=== PATIENT | male | born 1965 | race Hispanic/Latino ===

== ENCOUNTER 2019-03-03 10:36 | Emergency (ER) | payer MEDICARE ==
[~2019-03-03] VITALS: Ht 175.3 cm; Wt 81.0 kg
[~2019-03-03 10:36] MED LIST: CETIRIZINE10 MG PO; CLONAZEPAM0.5 MG PO; INDOMETHACIN50 MG PO; LEVEMIR SC; NOVOLIN 70/30 SC; NOVOLOG100 IU/1 M SC; PAROXETINE20 MG PO; PERCOCET1 TA2 PO; RISPERIDONE2 MG PO; WELLBUTRIN XL PO
[2019-03-03 11:22] LABS: IMMATURE GRANULOCYTES 0.2 % (0.0-5.0); MEAN CORPUSCULAR HGB 29.1 pG CALC (26.0-32.0); NEUT# 3.49 thou/uL (1.82-7.42); RED BLOOD COUNT 5.02 mill/uL (4.70-6.10); RED CELL DISTRI WIDTH 13.7 % (11.5-15.5)
[2019-03-03 11:23] LABS: HEMATOCRIT 44.2 % (39.0-50.0); HEMOGLOBIN 14.6 g/dl (14.0-18.0)
[2019-03-03 11:28] LABS: ALKALINE PHOSPHATASE 113 u/l (38-126); BUN 13 mg/dL (9-20); BUN/CREATININE RATIO 13 (12-20 (CALC)); CHLORIDE 94 mmol/l (95-108); GFR > 60 ML/MIN (>=60 (CALC)); GFR FOR AFR.AMER. > 60 ML/MIN (>=60 (CALC)); LIPASE 15 u/l (23-300); POTASSIUM 4.1 mmol/l (3.5-5.1); SODIUM 134 mmol/l (137-146)
[2019-03-03 11:54] LABS: ALBUMIN 4.3 g/dL (3.2-5.0); ANION GAP 15 (6-22 (CALC)); BILIRUBIN, TOTAL 0.4 mg/dL (0.0-1.4); CARBON DIOXIDE 29 mmol/l (22-30); SGOT/AST 47 u/l (17-59); TOTAL PROTEIN 7.2 g/dL (6.3-8.2)
[2019-03-03 12:55] VITALS: BP 132/60
== END 2019-03-03 12:55 | disposition left against medical advice (07) ==
LOC: ED 10:36
PROVIDERS: Family Medicine
DX: R07.9 Chest pain, unspecified (principal); J40 Bronchitis, not specified as acute or chronic; E11.9 Type 2 diabetes mellitus without complications; I10 Essential (primary) hypertension; F17.210 Nicotine dependence, cigarettes, uncomplicated; Z91.19 Patient's noncompliance with other medical treatment and regimen; Z79.4 Long term (current) use of insulin

== ENCOUNTER 2021-07-15 12:46 | Emergency (ER) | payer MEDICARE, MEDICAID ==
[2021-07-15] VITALS (15 sets, daily range): BP systolic 114–142; BP diastolic 60–78
[~2021-07-15] VITALS: Ht 175.3 cm; Wt 91.0 kg
[2021-07-15 13:27] LABS: HEMATOCRIT 44.6 % (39.0-50.0); IMMATURE GRANULOCYTES 0.3 % (0.0-5.0); MEAN CELL VOLUME 92.3 fL CALC (80.0-100.0); MEAN CORPUSCULAR HGB 31.1 pG CALC (26.0-32.0); MEAN CORPUSCULAR HGB CONC 33.6 g/dL CAL (32.0-36.0); NEUT# 4.98 thou/uL (1.82-7.42); RED BLOOD COUNT 4.83 mill/uL (4.70-6.10); RED CELL DISTRI WIDTH 12.5 % (11.5-15.5)
[2021-07-15 13:44] LABS: ALBUMIN 4.3 g/dL (3.2-5.0); ALKALINE PHOSPHATASE 125 u/l (38-126); ANION GAP 14 (6-22 (CALC)); BILIRUBIN, TOTAL 0.4 mg/dL (0.0-1.4); BUN 15 mg/dL (9-20); BUN/CREATININE RATIO 16 (12-20 (CALC)); CARBON DIOXIDE 27 mmol/l (22-30); CHLORIDE 95 mmol/l (95-108); CREATININE 0.9 mg/dL (0.7-1.3); GFR > 60 ML/MIN (>=60 (CALC)); GFR FOR AFR.AMER. > 60 ML/MIN (>=60 (CALC)); LIPASE 35 u/l (23-300); POTASSIUM 4.2 mmol/l (3.5-5.1); SGOT/AST 25 u/l (17-59); SODIUM 131 mmol/l (137-146); TOTAL PROTEIN 7.1 g/dL (6.3-8.2)
[2021-07-15 13:45] LABS: ACT PARTIAL THROMBO TIME 24.3 SECONDS (20.0-32.5); INTERNATIONAL NORMALIZED RATIO 0.9 RATIO (0.7-1.3); PROTHROMBIN TIME 9.8 SECONDS (9.0-12.5)
[2021-07-15 16:21] LABS: ANION GAP 13 (6-22 (CALC)); BUN 14 mg/dL (9-20); BUN/CREATININE RATIO 15 (12-20 (CALC)); CARBON DIOXIDE 29 mmol/l (22-30); CHLORIDE 99 mmol/l (95-108); CREATININE 0.9 mg/dL (0.7-1.3); GFR > 60 ML/MIN (>=60 (CALC)); GFR FOR AFR.AMER. > 60 ML/MIN (>=60 (CALC)); POTASSIUM 4.2 mmol/l (3.5-5.1); SODIUM 136 mmol/l (137-146)
== END 2021-07-15 16:55 | disposition home or self-care (01) ==
LOC: ED 12:46
DX: R07.9 Chest pain, unspecified (principal); E11.65 Type 2 diabetes mellitus with hyperglycemia; I10 Essential (primary) hypertension; F20.9 Schizophrenia, unspecified; F17.200 Nicotine dependence, unspecified, uncomplicated; Z79.4 Long term (current) use of insulin; Z20.822 Contact with and (suspected) exposure to COVID-19
CPT/HCPCS: Q9967

== ENCOUNTER 2021-07-25 12:06 | Observation (INO) | payer MEDICARE, MEDICAID ==
[2021-07-25] VITALS (16 sets, daily range): BP systolic 107–153; BP diastolic 56–82
[~2021-07-25] VITALS: Ht 175.3 cm; Wt 92.0 kg
--- NOTE | 2021-07-25 12:31 | NUR ---
PT ESCORTED TO ROOM 8 FOR EVAL OF POSSIBLE HYPERGLYCEMIA AND DIZZINESS
[2021-07-25 12:41] LABS: HEMATOCRIT 48.9 % (39.0-50.0); HEMOGLOBIN 16.3 g/dl (14.0-18.0); IMMATURE GRANULOCYTES 0.1 % (0.0-5.0); MEAN CELL VOLUME 91.7 fL CALC (80.0-100.0); MEAN CORPUSCULAR HGB 30.6 pG CALC (26.0-32.0); MEAN CORPUSCULAR HGB CONC 33.3 g/dL CAL (32.0-36.0); NEUT# 3.93 thou/uL (1.82-7.42); RED BLOOD COUNT 5.33 mill/uL (4.70-6.10); RED CELL DISTRI WIDTH 12.7 % (11.5-15.5)
[2021-07-25 13:03] LABS: ALBUMIN 4.8 g/dL (3.2-5.0); ALKALINE PHOSPHATASE 117 u/l (38-126); ANION GAP 15 (6-22 (CALC)); BILIRUBIN, TOTAL 0.5 mg/dL (0.0-1.4); BUN 17 mg/dL (9-20); BUN/CREATININE RATIO 19 (12-20 (CALC)); CARBON DIOXIDE 28 mmol/l (22-30); CHLORIDE 99 mmol/l (95-108); CREATININE 0.9 mg/dL (0.7-1.3); GFR > 60 ML/MIN (>=60 (CALC)); GFR FOR AFR.AMER. > 60 ML/MIN (>=60 (CALC)); POTASSIUM 4.1 mmol/l (3.5-5.1); SGOT/AST 23 u/l (17-59); SODIUM 138 mmol/l (137-146); TOTAL PROTEIN 7.8 g/dL (6.3-8.2)
[2021-07-25] MEDS ORDERED: TRILEPTAL150 M1 PO (15:43)
[2021-07-25] MEDS ORDERED: GABAPENTIN300 M2 PO (15:43)
[2021-07-25] MEDS ORDERED: ALPRAZOLAM1 MG PO (15:43)
[2021-07-25] MEDS ORDERED: BENZTROPINE0.5 MG PO (15:43)
[2021-07-25] MEDS ORDERED: HYDROXYZ HCL25 MG PO (15:44)
[2021-07-25] MEDS ORDERED: RISPERDAL0.5 MG PO (15:44)
[2021-07-25] MEDS ORDERED: FLUOXETINE20 MG PO (15:44)
[2021-07-25] MEDS ORDERED: VENLAFAXINE HCL75 M1 PO ×2 (15:44→15:45)
[2021-07-25] MEDS ORDERED: TRESIBA FL200 UNIT/M SC (15:45)
[2021-07-25] MEDS ORDERED: JARDIANCE25 MG PO (15:45)
[2021-07-25] MEDS ORDERED: SIMVASTATIN10 MG PO (15:46)
[2021-07-25] MEDS ORDERED: LEVOTHYROXIN88 MC1 PO (15:46)
[2021-07-25] MEDS ORDERED: TRILEPTAL300 M1 PO (16:07)
[2021-07-25] MEDS ORDERED: NOVOLIN 70/30 SC ×2 (16:08)
--- NOTE | 2021-07-25 17:15 | NUR ---
REPORT CALLED TO RIKA RAMSEY AT THIS TIME
--- NOTE | 2021-07-25 17:23 | NUR ---
REPORT RECIEVED FROM GODWIN GONZALEZ
--- NOTE | 2021-07-25 17:34 | NUR ---
PT ARRIVED VIA WC WITH BRAULIO GONZALEZ. ORIENTATED PT TO ROOM AND CALL CADE LIGHT SYSTEM. 20 RAC SL FLUSHED WITH NO RESISTANCE AND ABLE TO GET BLOOD RETURN. STATES SLIGHT TIGHTNESS IN CHEST WHEN BREATHING IN. TELE MONITOR IN PLACE, CONTINOUS MONITORING PER ED. FALL/SAFTEY PRECAUTION IN PLACE. CALL LIGHT WITHIN REACH
--- NOTE | 2021-07-25 21:36 | NUR ---
RESTING IN BED VS DOCUMENTED. A/O X 4 RESPIRATIONS EVEN AND UNLABORED. BS ACTIVE BELLY DISTENDED BUT SOFT. NO BLE EDEMA NOTED. NO C/O CHEST PAIN AT THIS TIME. PIV WDL BED LOW AND LOCKED CALL CADE IN REACH SIDE RAILS UP BED ALARM ACTIVE SAFETY MEASURES IN PLACE PER POLICY
--- NOTE | 2021-07-26 00:52 | NUR ---
RESTING IN BED EYES CLOSED RESPIRATIONS EVEN AND UNLABORED. VS CHARTED NO C/O CHEST PAIN THIS SHIFT
[2021-07-26 01:52] VITALS: BP 97/57
--- NOTE | 2021-07-26 03:51 | NUR ---
NO ACUTE EVENTS OVERNIGHT NO C/O CHEST PAIN
[2021-07-26 04:36] VITALS: BP 126/75
[2021-07-26 06:04] LABS: HEMATOCRIT 49.9 % (39.0-50.0); HEMOGLOBIN 16.4 g/dl (14.0-18.0); MEAN CELL VOLUME 92.9 fL CALC (80.0-100.0); MEAN CORPUSCULAR HGB 30.5 pG CALC (26.0-32.0); MEAN CORPUSCULAR HGB CONC 32.9 g/dL CAL (32.0-36.0); RED BLOOD COUNT 5.37 mill/uL (4.70-6.10); RED CELL DISTRI WIDTH 12.8 % (11.5-15.5)
[2021-07-26 06:20] LABS: BUN 16 mg/dL (9-20); BUN/CREATININE RATIO 21 (12-20 (CALC)); CALCULATED LDLCHOLESTEROL 102 mg/dL (62-129 (CALC)); CARBON DIOXIDE 28 mmol/l (22-30); CHLORIDE 103 mmol/l (95-108); CHOLESTEROL HDL RATIO 5.3 (<4.4 (CALC)); CREATININE 0.8 mg/dL (0.7-1.3); GFR > 60 ML/MIN (>=60 (CALC)); GFR FOR AFR.AMER. > 60 ML/MIN (>=60 (CALC)); HDL CHOLESTEROL 40 mg/dL (>=40); SODIUM 138 mmol/l (137-146); TOTAL CHOLESTEROL 215 mg/dl (0-199); TOTAL TRIGLYCERIDES 364 mg/dl (30-149); VLDL CHOLESTROL 73 mg/dl (8-62 (CALC))
[2021-07-26 06:22] LABS: ANION GAP 11 (6-22 (CALC)); POTASSIUM 4.1 mmol/l (3.5-5.1)
[2021-07-26 07:44] VITALS: BP 107/70
--- NOTE | 2021-07-26 07:45 | NUR ---
PT RESTING ON SIDE UPON ENTERING ROOM. VITALS AND ASSESSMENT ALLOWED. STATES NO PAIN AT THIS TIME. TELE MONITOR IN PLACE, CONINOUS MONITORING PER ED. IV PATENT. FALL/SAFTEY PRECAUTION IN PLACE. CALL LIGHT WITHIN REACH
--- NOTE | 2021-07-26 08:38 | NUR ---
IV INTACT, FLUSHED WITH NO RESISATNCE. ASSESSMENT ALLOWED AT THIS TIME. TELE MONITOR IN PLACE. CONTINOUS MONITORING PER ED.
[2021-07-26 10:45] VITALS: BP 140/77
--- NOTE | 2021-07-26 12:05 | NUR ---
PT LAYING DOWN AWAITING DC ORDERS. STATES NO PAIN. READY TO GO HOME. IV PATENT. FALL/SAFTEY PRECAUTION IN PLACE. CALL LIGHT WITHIN REACH.
--- NOTE | 2021-07-26 13:30 | NUR ---
Discharge instructions given. Patient verbalizes understanding of same. Discharged in stable condition via Wheelchair to Home with staff. All belongings sent with pt.
--- NOTE | 2021-07-26 13:53 | NUR ---
Discharge instructions given. Patient verbalizes understanding of same. Discharged in stable condition via Wheelchair to Home with family [facility] STEPHENIE . All belongings sent with pt.
== END 2021-07-26 13:53 | disposition home or self-care (01) ==
LOC: ED 12:06 → ED-I 13:18 → ED 14:43 → MS2 14:44
PROVIDERS: Family Medicine; ADMIT Hospitalist; ATTEND Hospitalist
DX: R07.9 Chest pain, unspecified (principal); M54.2 Cervicalgia; R42 Dizziness and giddiness; E11.65 Type 2 diabetes mellitus with hyperglycemia; I10 Essential (primary) hypertension; F41.9 Anxiety disorder, unspecified; E03.9 Hypothyroidism, unspecified; F25.9 Schizoaffective disorder, unspecified; E78.00 Pure hypercholesterolemia, unspecified; F17.210 Nicotine dependence, cigarettes, uncomplicated; Z79.4 Long term (current) use of insulin; Z20.822 Contact with and (suspected) exposure to COVID-19
CPT/HCPCS: J1650

== ENCOUNTER 2023-10-11 17:46 | Emergency (ER) | payer MEDICARE ==
[~2023-10-11] VITALS: Ht 180.3 cm; Wt 92.1 kg
[~2023-10-11 17:46] MED LIST changes: +ALPRAZOLAM1 MG PO; +BENZTROPINE0.5 MG PO; +FLUOXETINE20 MG PO; +GABAPENTIN300 M2 PO; +HYDROXYZ HCL25 MG PO; +JARDIANCE25 MG PO; +LEVOTHYROXIN88 MC1 PO; +RISPERDAL0.5 MG PO; +SIMVASTATIN10 MG PO; +TRESIBA FL200 UNIT/M SC; +TRILEPTAL150 M1 PO; +TRILEPTAL300 M1 PO; +VENLAFAXINE HCL75 M1 PO
[2023-10-11 18:14] VITALS: BP 134/66
[2023-10-11 18:30] VITALS: BP 124/63
[2023-10-11 18:45] VITALS: BP 138/68
[2023-10-11] MEDS ORDERED: AMOXIL400 MG/5 M PO (18:56)
[2023-10-11 19:00] VITALS: BP 131/71
[2023-10-11] MEDS ORDERED: AMOXICILLIN 400 MG/5 ML BTL PO ONE (19:00)
[2023-10-11 19:20] VITALS: BP 131/71
[2023-10-11] MEDS ORDERED: TRILEPTAL150 MG PO (19:26)
[2023-10-11] MEDS ORDERED: PLAVIX75 MG PO (19:31)
[2023-10-11] MEDS ORDERED: TRESIBA FL100 UNIT/M SC (19:34)
[2023-10-11] MEDS ORDERED: NOVOLIN R100 UNIT/1 SC (19:36)
[2023-10-11] MEDS ORDERED: TOPROL XL25 M1 PO (19:37)
[2023-10-11] MEDS ORDERED: BAYER ASPIRIN E81 MG PO (19:37)
[2023-10-11] MEDS ORDERED: CRESTOR20 MG PO (19:38)
[2023-10-11] MEDS ORDERED: NITROSTAT0.4 MG SL (19:38)
== END 2023-10-11 19:22 | disposition home or self-care (01) ==
LOC: ED 17:46
DX: J02.9 Acute pharyngitis, unspecified (principal); I10 Essential (primary) hypertension; E11.9 Type 2 diabetes mellitus without complications; F17.200 Nicotine dependence, unspecified, uncomplicated; Z79.4 Long term (current) use of insulin; Z20.822 Contact with and (suspected) exposure to COVID-19

== ENCOUNTER 2024-01-05 11:38 | Emergency (ER) | payer MEDICARE ==
[~2024-01-05] VITALS: Ht 180.3 cm; Wt 88.9 kg
[2024-01-05] VITALS (21 sets, daily range): BP systolic 97–143; BP diastolic 39–79
[~2024-01-05 11:38] MED LIST changes: +AMOXIL400 MG/5 M PO; +BAYER ASPIRIN E81 MG PO; +CRESTOR20 MG PO; +NITROSTAT0.4 MG SL; +NOVOLIN R100 UNIT/1 SC; +PLAVIX75 MG PO; +TOPROL XL25 M1 PO; +TRESIBA FL100 UNIT/M SC; +TRILEPTAL150 MG PO
[2024-01-05] MEDS ORDERED: SODIUM CHLORIDE 0.9% 1,000 ML IV ONE (12:35)
[2024-01-05] MEDS ORDERED: VANCOMYCIN HCL 1 GM in SODIUM CHLORIDE 0.9% 250 ML IV ONE (13:00)
[2024-01-05 13:10] LABS: BASO% 0.7 % (0-3); IMMATURE GRANULOCYTES 0.2 % (0.0-5.0); LYMPH% 12.9 % (15-41); MEAN CELL VOLUME 89.6 fL CALC (80.0-100.0); MEAN CORPUSCULAR HGB 29.8 pG CALC (26.0-32.0); MEAN CORPUSCULAR HGB CONC 33.3 g/dL CAL (32.0-36.0); MONO% 9.7 % (2-13); NEUT# 6.76 thou/uL (1.82-7.42); NEUT% 75.5 % (42-76); RED BLOOD COUNT 4.7 mill/uL (4.70-6.10); RED CELL DISTRI WIDTH 12.9 % (11.5-15.5)
[2024-01-05 13:21] LABS: HEMATOCRIT 42.1 % (39.0-50.0)
[2024-01-05 13:37] LABS: ALBUMIN 4.3 g/dL (3.2-5.0); ALKALINE PHOSPHATASE 143 u/l (38-126); ANION GAP 11 (6-22 (CALC)); BILIRUBIN, TOTAL 0.4 mg/dL (0.2-1.3); BUN 20 mg/dL (9-20); BUN/CREATININE RATIO 18 (12-20 (CALC)); CARBON DIOXIDE 26 mmol/l (22-30); CHLORIDE 105 mmol/l (95-108); CPK 143 u/l (55-170); CREATININE 1.1 mg/dL (0.7-1.3); ESTIMATED GFR 78 ML/MIN (>=90 (CALC)); SGOT/AST 25 u/l (17-59); SODIUM 138 mmol/l (137-146); TOTAL PROTEIN 7.5 g/dL (6.3-8.2)
[2024-01-05 15:19] LABS: URINE BILIRUBIN - DIPSTICK Negative (NEGATIVE); URINE BLOOD DIPSTICK Negative (NEGATIVE); URINE GLUCOSE - DIPSTICK >=1000 mg/dL (NEGATIVE); URINE KETONE Negative (NEGATIVE); URINE LEUK ESTERASE Negative (NEGATIVE); URINE NITRITE - DIPSTICK Negative (Negative); URINE PH 5.5 (4.5-8.0); URINE PROTEIN - DIPSTICK Negative (NEG-TRACE); URINE UROBILINOGEN - DIPSTICK 0.2 E.U./dL (0.2)
[2024-01-05 15:20] LABS: URINE COLOR Yellow
== END 2024-01-05 18:25 ==
LOC: ED 11:38
PROVIDERS: Nurse Practitioner
DX: R55 Syncope and collapse (principal); E11.51 Type 2 diabetes mellitus with diabetic peripheral angiopathy without gangrene; I70.244 Atherosclerosis of native arteries of left leg with ulceration of heel and midfoot; L97.429 Non-pressure chronic ulcer of left heel and midfoot with unspecified severity; L03.116 Cellulitis of left lower limb; I10 Essential (primary) hypertension; F20.9 Schizophrenia, unspecified; F17.210 Nicotine dependence, cigarettes, uncomplicated; Z95.5 Presence of coronary angioplasty implant and graft; Z79.4 Long term (current) use of insulin